=== PATIENT | male | born 1975 | race Hispanic/Latino ===

== ENCOUNTER 2020-06-10 01:57 | Emergency (ER) | payer SELFPAY ==
[2020-06-10] MEDS ORDERED: HYDROcodone/Acetaminophen 5/325 mg Tablet ONE (02:42)
== END 2020-06-10 02:49 | disposition home or self-care (01) ==
LOC: ERS 01:57
DX: M54.12 Radiculopathy, cervical region (principal); E11.9 Type 2 diabetes mellitus without complications; Z79.899 Other long term (current) drug therapy; Z79.84 Long term (current) use of oral hypoglycemic drugs
CPT/HCPCS: 99283

== ENCOUNTER 2020-06-18 08:02 | Outpatient (CLI) | payer OTHER ==
--- NOTE | 2020-06-18 08:23 | RAD ---
EXAM: XR Cerv Sp Ap Lat STANDARD PROVIDED CLINICAL HISTORY: Neck pain. COMPARISON: None FINDINGS: C1 to the cervicothoracic junction is seen on the lateral and swimmer's views of the cervical spine. T1 vertebral body is not well seen, but there is no subluxation at this level. No fracture or subluxation is seen involving the cervical spine. Vertebral body heights and intervertebral disc spac es are within normal limits. Interspinous distances appear to be within normal limits. Prevertebral soft tissues have a normal appearance. IMPRESSION: No acute findings. If the patient continues to have symptoms or if there is a neurological deficit, M RI cervical spine is recommended for further evaluation.
== END 2020-06-18 08:03 | disposition home or self-care (01) ==
LOC: RAD-FRANK 08:02
PROVIDERS: ATTEND Nurse Practitioner Family
DX: M54.12 Radiculopathy, cervical region (principal)
CPT/HCPCS: 72040